=== PATIENT | female | born 1975 | race American Indian/Alaskan Native ===

== ENCOUNTER 2017-06-30 23:42 | Emergency (ER) | payer SELFPAY ==
[~2017-06-30] VITALS: Ht 170.2 cm; Wt 93.3 kg
[~2017-06-30 23:42] MED LIST: ACET325T26 PO; AMOX250C17 PO; ESTR1TAB15 PO; IBUP-1223 PO; OMEP-110 PO; PROGESTERONE; TESTOSTERONE; [UNRECOGNIZED DRUG - CODE] PO
[2017-06-30 23:44] VITALS: BP 147/98
== END 2017-07-01 00:22 | disposition home or self-care (01) ==
LOC: ED 07-01 00:16
DX: Z04.8 Encounter for examination and observation for other specified reasons (principal); Z88.0 Allergy status to penicillin; Z88.1 Allergy status to other antibiotic agents; Z88.8 Allergy status to other drugs, medicaments and biological substances
CPT/HCPCS: 99281

== ENCOUNTER 2018-10-22 09:51 | Inpatient (IN) | payer OTHER ==
[~2018-10-22] VITALS: Ht 175.3 cm; Wt 95.3 kg
--- NOTE | 2018-10-22 10:38 | NUR ---
PATIENT PRESENTS TO ED TODAY FOR GENERALIZED BODY RASH, INCLUDING VAGINAL AREA AND MOUTH X 6 DAYS. STEROIDS X 4 DAYS PRESCRIBED BY [facility], BIOPSY COMPLETED BY DR BALDERRAMA FROM [facility] 3 DAYS AGO. CALL LIGHT WITHIN REACH. NAD NOTED. A+OX4. LAB AT BEDSIDE FOR LAB DRAW.
[2018-10-22] MEDS ORDERED: LAMO25TB2 PO (10:43)
[2018-10-22] MEDS ORDERED: LISD60CA PO (10:44)
[2018-10-22] MEDS ORDERED: MORPHINE SULFATE 4 MG/ML, 1ML IVPush PRN (11:00)
[2018-10-22] MEDS ORDERED: methylPREDNISolone SOD SUCC 125 MG/2 ML IVPush SCH ×2 (11:00→17:00)
[2018-10-22 11:03] LABS: BASOPHILS # (AUTO) 0.01 x10^3/uL (0-0.1); BASOPHILS % (AUTO) 0 % (0-1); EOSINOPHILS # (AUTO) 0.22 x10^3/uL (0-0.4); EOSINOPHILS % (AUTO) 3 % (1-7); LYMPHOCYTES # (AUTO) 0.69 x10^3/uL (1-3.4); LYMPHOCYTES % (AUTO) 9 % (22-44); MD NO; MEAN CORPUSCULAR VOLUME 91.3 fL (80-100); MEAN PLATELET VOLUME 7.1 fL (7.4-10.4); MONOCYTES # (AUTO) 0.51 x10^3/uL (0.2-0.8); MONOCYTES % (AUTO) 7 % (2-9); NEUTROPHILS % (AUTO) 82 % (42-75); PLATELET COUNT 278 x10^3/uL (130-400); RED BLOOD COUNT 4.52 x10^6/uL (3.82-5.3)
--- NOTE | 2018-10-22 11:05 | NUR ---
[facility] AT BEDSIDE.
--- NOTE | 2018-10-22 11:09 | NUR ---
REPORT TO RAFAELA MENDOZA.
[2018-10-22] MEDS ORDERED: methylPREDNISolone SOD SUCC 125 MG/2 ML ONE ×2 (11:10→13:40)
[2018-10-22] MEDS ORDERED: MORPHINE SULFATE 4 MG/ML, 1ML ONE (11:10)
[2018-10-22 11:11] LABS: INTERNATIONAL NORMALIZED RATIO 0.99 (0.93-1.1); PROTHROMBIN TIME 10.5 Seconds (9.6-11.5)
[2018-10-22 11:12] LABS: ALANINE AMINOTRANSFERASE 56 U/L (12-78); ALBUMIN 3.2 g/dL (3.4-5.0); ANION GAP 12 mmol/L (5-15); CALCIUM 8.3 mg/dL (8.5-10.1); CHLORIDE 103 mmol/L (98-107); CREATININE 1.07 mg/dL (0.55-1.02)
[2018-10-22 11:14] LABS: ALKALINE PHOSPHATASE 44 U/L (45-117); BILIRUBIN,TOTAL 0.5 mg/dL (0.2-1.0); TOTAL PROTEIN 6.9 g/dL (6.4-8.2)
--- NOTE | 2018-10-22 11:31 | NUR ---
PATIENT TRANSFERRED/ADMITTED TO HOSPITAL BED.
[2018-10-22 11:45] VITALS: BP 95/62
[2018-10-22] MEDS ORDERED: SODIUM CHLORIDE 0.9% 1,000 ML IV SCH (12:08)
[2018-10-22] MEDS ORDERED: IBUPROFEN 600 MG TABLET PO PRN (12:30)
[2018-10-22] MEDS ORDERED: ONDANSETRON 2MG/ML, 2ML IVPush PRN (12:30)
[2018-10-22] MEDS ORDERED: BISACODYL 10 MG SUPP PR PRN (12:30)
[2018-10-22] MEDS ORDERED: ACETAMINOPHEN 325 MG TABLET PO PRN (12:30)
[2018-10-22] MEDS ORDERED: morphine SULFATE 10 MG/ML, 1ML IVPush PRN (12:30)
[2018-10-22] MEDS ORDERED: POTASSIUM CHLORIDE 20 MEQ TAB.ER.PRT PO ONE (12:30)
[2018-10-22] MEDS ORDERED: HYDROcodone/APAP 5/325 TABLET PO PRN (12:30)
[2018-10-22] MEDS ORDERED: ENOXAPARIN 40 MG/0.4 ML SQ SCH (12:30)
[2018-10-22] MEDS ORDERED: ONDANSETRON ODT 4 MG PO PRN (12:30)
[2018-10-22] MEDS ORDERED: DOCUSATE 100 MG CAPSULE PO PRN (12:30)
[2018-10-22] MEDS ORDERED: ENALAPRILAT 1.25 MG/ML, 2ML IVPush PRN (12:30)
[2018-10-22] MEDS ORDERED: PANTOPRAZOLE 40 MG IV IVPush SCH (12:30)
[2018-10-22 13:10] LABS: TROPONIN I < 0.015 ng/mL (0.000-0.045)
[2018-10-22] MEDS ORDERED: LACTATED RINGERS 1,000 ML IV SCH (13:30)
[2018-10-22] MEDS: methylPREDNISolone SOD SUCC 125 MG/2 ML IVPush ONE ×2 (13:50→14:29)
[2018-10-22] MEDS: FENTANYL PF 100 MCG/2ML IVPush PRN ×2 (13:50→15:48)
[2018-10-22] MEDS: SODIUM CHLORIDE 0.9%, 500ML IVBOLUS ONE ×2 (13:50→14:29)
[2018-10-22] MEDS ORDERED: VANCOMYCIN PER PHARMACY MC PRN (14:00)
[2018-10-22] MEDS ORDERED: METRONIDAZOLE PMX 500MG/100ML 100 ML IV SCH (14:00)
[2018-10-22] MEDS ORDERED: AZTREONAM 1 GM in SODIUM CHLORIDE 0.9% 50 ML IV SCH (14:00)
[2018-10-22] MEDS ORDERED: LINEZOLID PMX 600MG/300ML 300 ML IV SCH (14:00)
[2018-10-22] MEDS ORDERED: DIPHENHYDRAMINE 50 MG/ML, 1ML IVPush PRN (14:00)
[2018-10-22] MEDS: CYCLOSPORINE (SANDIMUNE) 100 MG CAPSULE PO SCH ×2 (14:30→15:57)
[2018-10-22] MEDS ORDERED: CYCLOSPORINE 25 MG PO SCH (14:30)
[2018-10-22 17:21] LABS: MICROSCOPIC INDICATED
[2018-10-22 17:27] LABS: CULTURE INDICATED? YES
== END 2018-10-22 16:15 | disposition short-term general hospital (02) | DRG 596 ==
LOC: ED 10:45 → 4NOR 10:47 → ICU 13:34
PROVIDERS: ADMIT Family Medicine; ATTEND Family Medicine
DX: L51.1 Stevens-Johnson syndrome (principal); E87.2 Acidosis; S40.821A Blister (nonthermal) of right upper arm, initial encounter; X58.XXXA Exposure to other specified factors, initial encounter; F32.9 Major depressive disorder, single episode, unspecified; F90.9 Attention-deficit hyperactivity disorder, unspecified type; E87.6 Hypokalemia; Z85.42 Personal history of malignant neoplasm of other parts of uterus; Z87.891 Personal history of nicotine dependence; Z90.710 Acquired absence of both cervix and uterus; Z90.49 Acquired absence of other specified parts of digestive tract; Z98.51 Tubal ligation status; Z88.0 Allergy status to penicillin; Y93.89 Activity, other specified; Y92.89 Other specified places as the place of occurrence of the external cause; Y99.8 Other external cause status
CPT/HCPCS: 36415; 71045; 80053; 81001; 83605; 83735; 84484; 85025; 85610; 85730; 87040; 87081; 87086; 87147; 93005; 99285; G0378; J1650; J2405; J3010; C9113; J2270; J2930; J7030; J7040; J7502; J7515